=== PATIENT | male | born 1950 | race Caucasian/White ===

== ENCOUNTER 2022-12-07 13:49 | Observation (INO) | payer MEDICARE, OTHER ==
--- NOTE | 2022-12-07 14:22 | XRAY ---
Indication: Chest pain/tightness. Comparison: September 06, 2022 Portable chest again demonstrates left base subsegmental atelectasis/scarring. Remaining heart and lungs unremarkable. Bony thorax intact again with osteopenia, degenerative changes, old right clavicle fracture, and old right rib fractures. Impression: Continued nonacute chest with chronic features.
[2022-12-07 14:30] LABS: Absolute Neutrophil Ct (ANC) 9.12 x10^3/uL (1.4-6.9); BASOPHIL % 0.2 % (0.0-0.4); Basophil (Absolute #) 0.02 x10^3/uL (0-0.4); Eosinophil % 1.5 % (0.00-5.0); Eosinophil (Absolute #) 0.16 x10^3/uL (0-0.5); Hematocrit 36.5 % (42-50); Hemoglobin 12.6 g/dL (12.5-18.0); IMMATURE GRAN # 0.03 x10^3u/L (0.00-0.03); IMMATURE GRAN % 0.3 % (0.00-0.4); Lymphocyte (Absolute #) 0.31 x10^3/uL (1.0-4.6); Mean Cell Volume 86.9 fL (78-100); Mean Corpuscular Hgb Concent. 34.5 g/dL (32-36); Mean Platelet Volume 10.7 fL (7.5-11.0); Monocyte (Absolute #) 0.72 x10^3/uL (0.0-1.3); Monocytes % 6.9 % (0.0-12.0); Neutrophil % 88.1 % (36.0-66.0); Platelet Count 203 x10^3/uL (150-450); Red Cell Distribution Width 12.4 % (11.5-14.0); White Blood Count 10.4 x10^3/uL (4.0-10.5)
[2022-12-07] MEDS ORDERED: BABY ASPIRIN 81 MG CHEW PO ONE (14:34)
--- NOTE | 2022-12-07 14:40 | ERPHSYRPT ---
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 I had some chest discomfort and I am weak. I do not hurt now I just do not feel well." Triage Nursing Assessment: PT presented alert and oriented X 3, skin pwd. Pt able to speak in clear full sentences. pt resting comfortably on the bed. PT arrived with a 22 g iv in his right ac. pt able to move all extremities. Physician History: 72 yo WM w Mid-sternal chest pain while climbing on a dumpster. pain was descr ibed as "tightness" and has now resolved. Pain did not radiate and was accompanied by nausea/dyspnea/diaphoresis. Pain lasted 30 minutes and resolved w rest. He denies CAD/NH but does have a h/o HTN/Hyperlipidemia. Pt sees Dr. Martinez for his blood pressure. states that pt has had similar episodes in the past. Timing/Duration: today Activities at Onset: other (Climbing on a dumpster) Quality: tightness Location: substernal Chest Pain Radiation: no radiation Severity of Pain-Max: moderate Severity of Pain-Current: none Modifying Factors: Improves With: rest Associated Symptoms: nausea, shortness of breath, diaphoresis Nitro Today/Relief: no nitro taken today Aspirin Treatment Today: no aspirin today Allergies/Adverse Reactions: No Known Drug Allergies Allergy (Verified 04/30/13 11:05) Home Medications: ALPRAZolam 0.25 MG [xanAX 0.25 MG] 0.25 mg PO DAILY 12/07/22 [History] Amlodipine Besylate 5 mg [Norvasc 5 mg] 5 mg PO BID 12/07/22 [History] Aspirin EC 325 mg [Ecotrin 325 MG] 325 mg PO 3XW 12/07/22 [History] Benazepril HCl 40 mg PO DAILY 12/07/22 [History] Carvedilol [Coreg] 25 mg PO BID 12/07/22 [History] Famotidine 40 mg PO DAILY 12/07/22 [History] Folic Acid 20 mg PO DAILY 12/07/22 [History] Methotrexate Sodium [Methotrexate] 25 mg IJ WEEKLY 12/07/22 [History] Metoclopramide HCl 10 mg PO DAILY 12/07/22 [History] Omeprazole 80 mg PO BID 12/07/22 [History] Simvastatin 20Mg [Zocor 20Mg] 20 mg PO DAILY 12/07/22 [History] Hx Tetanus, Diphtheria Vaccination/Date Given: Yes (01/2013) Hx Influenza Vaccination/Date Given: No Hx Pneumococcal Vaccination/Date Given: No Immunizations Up to Date: Yes Travel Risk - International Travel Have you traveled outside of the country in past 3 weeks: No - Coronavirus Screening Are you exhibiting any of the following symptoms?: No Close contact with a COVID-19 positive Pt in past 14-21 Days: No - Vaccine Status Have you recieved a Covid-19 vaccination: Yes [employer]: Moderna - Vaccination Dates Date of 2cond Vaccination (if applicable): 2020 - Review of Systems Constitutional: No Symptoms Eyes: No Symptoms Ears, Nose, & Throat: No Symptoms Respiratory: No Symptoms, Dyspnea Cardiac: No Symptoms, Chest Pain Abdominal/Gastrointestinal: No Symptoms, Nausea Genitourinary Symptoms: No Symptoms Musculoskeletal: No Symptoms Skin: No Symptoms Neurological: No Symptoms Psychological: No Symptoms Endocrine: No Symptoms Hematologic/Lymphatic: No Symptoms Immunological/Allergic: No Symptoms - Past Medical History Pertinent Past Medical History: Yes Neurological History: No Pertinent History ENT History: No Pertinent History Cardiac History: Hypertension Respiratory History: No Pertinent History Endocrine Medical History: No Pertinent History Musculoskeletal History: Fractures GI Medical History: GERD History: No Pertinent History Psycho-Social History: Anxiety Male Reproductive Disorders: No Pertinent History Other Medical History: GERD - Past Surgical History Past Surgical History: Yes Neuro Surgical History: No Pertinent History Cardiac: No Pertinent History Respiratory: No Pertinent History Gastrointestinal: No Pertinent History Genitourinary: No Pertinent History Musculoskeletal: Orthopedic Surgery Male Surgical History: No Pertinent History Other Surgical History: fracture repair. legs arms collar bone hands - Social History Smoking Status: Former smoker Exposure to second hand smoke: No Alcohol Use: None Drug Use: none Patient Lives Alone: No Significant Family History: hypertension - Nursing Vital Signs Nursing Vital Signs: Initial Vital Signs Temperature 99.0 F 12/07/22 13:57 Pulse Rate 75 12/07/22 13:57 Respiratory Rate 22 12/07/22 13:57 Blood Pressure 144/70 12/07/22 13:57 O2 Sat by Pulse Oximetry 96 12/07/22 13:57 Pain Scale Pain Intensity 0 Hypertensive - Physical Exam General Appearance: no apparent distress Eye Exam: PERRL/EOMI, eyes nml inspection Ears, Nose, Throat Exam: normal ENT inspection, TMs normal, pharynx normal, moist mucous membranes Neck Exam: normal inspection, non-tender, supple, full range of motion, No meningismus, No mass, No Brudzinski, No Kernig's Respiratory Exam: normal breath sounds, lungs clear, airway intact Cardiovascular Exam: regular rate/rhythm, normal heart sounds, normal peripheral pulses, capillary refill <2 sec, No murmur Gastrointestinal/Abdomen Exam: soft, normal bowel sounds, No tenderness Back Exam: normal inspection, normal range of motion, No CVA tenderness, No vertebral tenderness Extremity Exam: normal inspection, normal range of motion Neurologic Exam: alert, oriented x 3, cooperative, operating room assistant II-XII nml as tested, normal mood/affect, nml cerebellar function, nml station & gait, sensation nml, No motor deficits, No sensory deficit Skin Exam: normal color, warm, dry Lymphatic Exam: No adenopathy SpO2 Interpretation: normal SpO2: 96 O2 Delivery: Room Air - Course Nursing assessment & vital signs reviewed: Yes EKG Interpreted by Me: RATE (Artifact/Poor tracing/Mildly tachy/prolonged Qtc/Flat T waves/EKG #2 NSR/Flat Twaves/No acute ST segment changes) - Radiology Exams Chest X-ray Interpretation: Reviewed by me, Discussed w/ radiologist (CXR neg per Rad) Ordered Tests: Active Orders 24 hr Category Date Time Status EKG-ER Only STAT Care 12/07/22 14:06 Completed EKG-ER Only STAT Care 12/07/22 16:28 Completed Heart-Healthy Diet Diet 12/08/22 Breakfast Active CHEST 1 VIEW (PORTABLE) Stat Exams 12/07/22 14:06 Completed ECHO W/2D AND DOPPLER [US] Routine Exams 12/08/22 10:00 Stop Req CBC W DIFF Stat Lab 12/07/22 14:25 Completed CMP Stat Lab 12/07/22 14:25 Completed LIPID PROFILE AM.LAB Lab 12/08/22 04:00 Ordered NT PRO BNPII Stat Lab 12/07/22 14:25 Completed PROTIME WITH INR Stat Lab 12/07/22 14:25 Completed PTT Stat Lab 12/07/22 14:25 Completed TROPONIN Q4H Lab 12/07/22 14:25 Completed TROPONIN Q4H Lab 12/07/22 16:30 Completed TROPONIN Q4H Lab 12/07/22 22:15 Ordered EKG Q8HX2,QAMX3,PRN RT 12/07/22 17:21 Completed Pulse Oximetry Q4H RT 12/07/22 17:21 Completed Transfer Order Routine Transfer 12/07/22 Completed Medication Summary Generic Name Dose Route Start Last Admin Trade Name Freq PRN Reason Stop Dose Admin Acetaminophen 650 mg 12/07/22 17:21 Acetaminophen 325 Mg Tablet PO 01/06/23 17:20 Q4H PRN PRN PAIN AND/OR FEVER Al Hydrox/Mg Hydrox/Simethicone 30 ml 12/07/22 17:21 Mag Hydrox/Al Hydrox/Simeth 30 Ml Udcup PO 01/06/23 17:20 Q4H PRN PRN INDIGESTION Alprazolam 0.25 mg 12/07/22 21:54 Alprazolam 0.25 Mg Tablet PO 01/06/23 21:53 DAILY PRN PRN ANXIETY Amlodipine Besylate 5 mg 12/07/22 22:00 Amlodipine Besylate 5 Mg Tablet PO 01/06/23 21:59 BID NAVDEEP Aspirin 325 mg 12/08/22 10:00 Aspirin 325 Mg Tablet.Ec PO 01/07/23 09:59 DAILY NAVDEEP Benazepril HCl 40 mg 12/08/22 10:00 Benazepril Hcl 10 Mg Tablet PO 01/07/23 09:59 QAM NAVDEEP Carvedilol 25 mg 12/07/22 22:00 Carvedilol 12.5 Mg Tablet PO 01/06/23 21:59 BID NAVDEEP Diphenhydramine HCl 50 mg 12/07/22 21:54 Diphenhydramine Hcl 25 Mg Capsule PO 01/06/23 21:53 HS PRN PRN INSOMNIA Enoxaparin Sodium 40 mg 12/08/22 10:00 Enoxaparin Sodium 40 Mg/0.4 Ml Syringe SQ 01/07/23 09:59 DAILY NAVDEEP Sodium Chloride 500 mls @ 20 mls/hr 12/07/22 17:30 Sodium Chloride 0.9% 500 Ml IV 01/06/23 17:29 .Q24H NAVDEEP Magnesium Hydroxide 30 - 60 ml 12/07/22 17:21 Magnesium Hydroxide 30 Ml Udcup PO 01/06/23 17:20 QDP PRN CONSTIPATION Morphine Sulfate 2 mg 12/07/22 17:21 Morphine Sulfate 2 Mg/Ml Inj IV 12/12/22 17:20 .Q15MIN PRN PRN CHEST PAIN Nitroglycerin 0.4 mg 12/07/22 17:21 Nitroglycerin 0.4 Mg Tablet Bottle SL 01/06/23 17:20 .Q5MIN PRN CHEST PAIN Ondansetron HCl 4 mg 12/07/22 17:21 Ondansetron Hcl 4 Mg/2 Ml Vial IV 01/06/23 17:20 Q4H PRN PRN NAUSEA/VOMITING Senna/Docusate Sodium 2 udtab 12/07/22 17:21 Senna/Docusate Sodium 1 Udtab Tablet PO 01/06/23 17:20 BID PRN PRN CONSTIPATION Simvastatin 40 mg 12/07/22 22:00 Simvastatin 20 Mg Tablet PO 01/06/23 21:59 BID NAVDEEP Discontinued Medications Generic Name Dose Route Start Last Admin Trade Name Freq PRN Reason Stop Dose Admin Aspirin 324 mg 12/07/22 14:34 12/07/22 14:57 Aspirin 81 Mg Tab.Chew PO 12/07/22 14:35 324 mg STAT ONE Administration Aspirin Confirm 12/07/22 14:57 Aspirin 81 Mg Tab.Chew Administered 12/07/22 14:58 Dose 324 mg .ROUTE .[facility] Lab/Rad Data: Laboratory Result Diagrams 12/07/22 14:25 12/07/22 14:25 Laboratory Results 12/07/22 12/07/22 12/07/22 Range/Units 17:30 16:30 14:25 WBC (4.0-10.5) x10^3/uL RBC (4.1-5.6) x10^6/uL Hgb (12.5-18.0) g/dL Hct (42-50) % MCV (78-100) fL MCH (26-32) pg MCHC (32-36) g/dL RDW (11.5-14.0) % Plt Count (150-450) x10^3/uL MPV (7.5-11.0) fL Gran % (36.0-66.0) % Immature Gran % (Auto) (0.00-0.4) % Nucleat RBC Rel Count (0.00-0.1) % Eos # (Auto) (0-0.5) x10^3/uL Immature Gran # (Auto) (0.00-0.03) x10^3u/L Absolute Lymphs (auto) (1.0-4.6) x10^3/uL Absolute Monos (auto) (0.0-1.3) x10^3/uL Absolute Nucleated RBC (0.00-0.01) x10^3u/L Lymphocytes % (24.0-44.0) % Monocytes % (0.0-12.0) % Eosinophils % (0.00-5.0) % Basophils % (0.0-0.4) % Absolute Granulocytes (1.4-6.9) x10^3/uL Basophils # (0-0.4) x10^3/uL PT (9.4-12.5) SECONDS INR (0.8-3.0) APTT (25.1-36.5) SECONDS Sodium (137-145) mmol/L Potassium (3.5-5.1) mmol/L Chloride (98-107) mmol/L Carbon Dioxide (22-30) mmol/L Anion Gap (5-15) MEQ/L BUN (9-20) mg/dL Creatinine (0.66-1.25) mg/dL Estimated GFR ML/MIN Glucose (74-106) mg/dL Calcium (8.4-10.2) mg/dL Total Bilirubin (0.2-1.3) mg/dL AST (17-59) U/L ALT (0-50) U/L Alkaline Phosphatase (38-126) U/L Troponin I < 0.012 < 0.012 (0.000-0.034) ng/mL NT-Pro-B Natriuret Pep (<300) pg/mL Serum Total Protein (6.3-8.2) g/dL Albumin (3.5-5.0) g/dL Influenza Type A Ag NEGATIVE (NEGATIVE) Influenza Type B Ag NEGATIVE (NEGATIVE) RSV (PCR) NEGATIVE (NEGATIVE) SARS-CoV-2 (PCR) NEGATIVE (NEGATIVE) Slides for Path Review 12/07/22 12/07/22 12/07/22 Range/Units 14:25 14:25 14:25 WBC 10.4 (4.0-10.5) x10^3/uL RBC 4.20 (4.1-5.6) x10^6/uL Hgb 12.6 (12.5-18.0) g/dL Hct 36.5 L (42-50) % MCV 86.9 (78-100) fL MCH 30.0 (26-32) pg MCHC 34.5 (32-36) g/dL RDW 12.4 (11.5-14.0) % Plt Count 203 (150-450) x10^3/uL MPV 10.7 (7.5-11.0) fL Gran % 88.1 H (36.0-66.0) % Immature Gran % (Auto) 0.3 (0.00-0.4) % Nucleat RBC Rel Count 0.0 (0.00-0.1) % Eos # (Auto) 0.16 (0-0.5) x10^3/uL Immature Gran # (Auto) 0.03 (0.00-0.03) x10^3u/L Absolute Lymphs (auto) 0.31 L (1.0-4.6) x10^3/uL Absolute Monos (auto) 0.72 (0.0-1.3) x10^3/uL Absolute Nucleated RBC 0.00 (0.00-0.01) x10^3u/L Lymphocytes % 3.0 L (24.0-44.0) % Monocytes % 6.9 (0.0-12.0) % Eosinophils % 1.5 (0.00-5.0) % Basophils % 0.2 (0.0-0.4) % Absolute Granulocytes 9.12 H (1.4-6.9) x10^3/uL Basophils # 0.02 (0-0.4) x10^3/uL PT 10.3 (9.4-12.5) SECONDS INR 0.94 (0.8-3.0) APTT 27.9 (25.1-36.5) SECONDS Sodium 123 L (137-145) mmol/L Potassium 4.5 (3.5-5.1) mmol/L Chloride 89 L (98-107) mmol/L Carbon Dioxide 22 (22-30) mmol/L Anion Gap 17.1 H (5-15) MEQ/L BUN 10 (9-20) mg/dL Creatinine 0.90 (0.66-1.25) mg/dL Estimated GFR > 60.0 ML/MIN Glucose 98 (74-106) mg/dL Calcium 8.7 (8.4-10.2) mg/dL Total Bilirubin 0.70 (0.2-1.3) mg/dL AST 39 (17-59) U/L ALT 28 (0-50) U/L Alkaline Phosphatase 73 (38-126) U/L Troponin I (0.000-0.034) ng/mL NT-Pro-B Natriuret Pep 219 (<300) pg/mL Serum Total Protein 7.6 (6.3-8.2) g/dL Albumin 4.5 (3.5-5.0) g/dL Influenza Type A Ag (NEGATIVE) Influenza Type B Ag (NEGATIVE) RSV (PCR) (NEGATIVE) SARS-CoV-2 (PCR) (NEGATIVE) Slides for Path Review YES - Progress Progress: improved Progress Note: 12/07/22 17:26 Nursing note and vital signs reviewed No food or housing insecurities noted Additional history per EMS/ 324 ASA po No chest pain in ER Obs tele admit per Dr. MendezS Pt is a full code Heart score 5 Wells score for PE Wells Score 0.[address] Haris Counseled pt/family regarding: lab results, diagnosis, rad results Medical Desision Making - Independent Historian Additional History obtained from: Spouse, EMS - Discussion of managment Care discussed with:: on-call "doc" Reviewed:: Test results Agreed on:: Treatment plan, place in obs Will see patient: in hospital - Diagnostic Testing Diagnostic test were ordered, analyzed, and reviewed by me: Yes Radiological Interpretation: Reviewed by me, Discussed w/ radiologist - Risk of complications The pt has a mod risk of morbidity or mortality based on: Need for prescription drug management - Departure Departure Disposition: Observation Clinical Impression: Chest pain, Hyponatremia Condition: Stable Critical Care Time: Yes Critical Care Time(excluding separately billable procedures): Critical 30-74 mins
[2022-12-07 14:45] LABS: INR 0.94 (0.8-3.0); PROTIME 10.3 SECONDS (9.4-12.5); PTT 27.9 SECONDS (25.1-36.5)
[2022-12-07 14:54] LABS: ALBUMIN 4.5 g/dL (3.5-5.0); ALKALINE PHOSPHATASE 73 U/L (38-126); ANION GAP 17.1 MEQ/L (5-15); BLOOD UREA NITROGEN 10 mg/dL (9-20); CHLORIDE 89 mmol/L (98-107); Calcium 8.7 mg/dL (8.4-10.2); Carbon Dioxide 22 mmol/L (22-30); EST GLOMERULAR FILTRATION RATE > 60.0 ML/MIN; Glucose 98 mg/dL (74-106); NT PRO BNPII 219 pg/mL (<300); Potassium 4.5 mmol/L (3.5-5.1); SGOT/AST 39 U/L (17-59); SGPT/ALT 28 U/L (0-50); SODIUM 123 mmol/L (137-145); Total Protein 7.6 g/dL (6.3-8.2)
[2022-12-07] MEDS ORDERED: BABY ASPIRIN 81 MG CHEW ONE (14:57)
[2022-12-07 15:28] LABS: Slide Review 1 YES
[2022-12-07] MEDS ORDERED: MAALOX ES 30 ML UNIT DOSE PO PRN (17:21)
[2022-12-07] MEDS ORDERED: MILK OF MAGNESIA 30 ML PO PRN (17:21)
[2022-12-07] MEDS ORDERED: TYLENOL 325 MG PO PRN (17:21)
[2022-12-07] MEDS ORDERED: MORPHINE SULFATE 2 MG INJ IV PRN (17:21)
[2022-12-07] MEDS ORDERED: Senokot-S Tablet PO PRN (17:21)
[2022-12-07] MEDS ORDERED: Nitrostat 0.4 MG Tablet SL PRN (17:21)
[2022-12-07] MEDS ORDERED: Zofran 4 MG/2 ML VIAL IV PRN (17:21)
[2022-12-07] MEDS ORDERED: Sodium Chloride 0.9% 500 ML 500 ML IV SCH (17:30)
[2022-12-07 18:11] LABS: INFLUENZA A NEGATIVE (NEGATIVE); INFLUENZA B NEGATIVE (NEGATIVE); RESPIRATORY SYNCTIAL VIRUS NEGATIVE (NEGATIVE); SARS-CoV-2 Xpert Express NEGATIVE (NEGATIVE)
[2022-12-07] MEDS ORDERED: BENADRYL 25 MG CAPSULE PO PRN (21:54)
[2022-12-07] MEDS ORDERED: xanAX 0.25 MG PO PRN (21:54)
--- NOTE | 2022-12-07 22:32 | PCM.HP ---
History of Present Illness - Chief Complaint Chief Complaint: Chest pain History of Present Illness: is a 72 year old male with h/o HTN, GERD, and psoriasis, who presents with sudden onset of chest pain. He was recently started on Skyrizi for psoriasis, and has noted increased malaise and fatigue the past few days. But today, while climbing on truck, had sudden onset of burning substernal chest pain, without radiation, associated with diaphoresis, but no dyspnea, nausea, or numbness. Rested back in his truck, but pain lasted for about one hour, resolving prior to arriving in ED. No chest pain since then. Had a similar episode about 9 years ago, was told had episode of angina, but has not had any further need for follow up. Remote smoking history (quit 50 years ago), no family history of CAD. - Review of Systems Constitutional: Fatigue, Malaise, No Fever, No Chills Eyes: No Symptoms Ears, Nose, & Throat: No Symptoms Respiratory: No Cough, No Short Of Breath Cardiac: Chest Pain, No Edema, No Palpitations, No Syncope Abdominal/Gastrointestinal: No Abdominal Pain, No Nausea Genitourinary Symptoms: No Symptoms Musculoskeletal: No Symptoms Skin: Rash Neurological: No Dizziness, No Focal Weakness, No Sensory Changes Psychological: No Symptoms Medications & Allergies Home Medications: Home Medication List ALPRAZolam 0.25 MG [xanAX 0.25 MG] 0.25 mg PO DAILY 12/07/22 [History Confirmed 12/07/22] Amlodipine Besylate 5 mg [Norvasc 5 mg] 5 mg PO BID 12/07/22 [History Confirmed 12/07/22] Aspirin EC 325 mg [Ecotrin 325 MG] 325 mg PO 3XW 12/07/22 [History Confirmed 12/07/22] Benazepril HCl 40 mg PO DAILY 12/07/22 [History Confirmed 12/07/22] Carvedilol [Coreg] 25 mg PO BID 12/07/22 [History Confirmed 12/07/22] Famotidine 40 mg PO DAILY 12/07/22 [History Confirmed 12/07/22] Folic Acid 20 mg PO DAILY 12/07/22 [History Confirmed 12/07/22] Methotrexate Sodium [Methotrexate] 25 mg IJ WEEKLY 12/07/22 [History Confirmed 12/07/22] Metoclopramide HCl 10 mg PO DAILY 12/07/22 [History Confirmed 12/07/22] Omeprazole 80 mg PO BID 12/07/22 [History Confirmed 12/07/22] Simvastatin 20Mg [Zocor 20Mg] 20 mg PO DAILY 12/07/22 [History Confirmed 12/07/22] Allergies/Adverse Reactions: Allergies Allergy/AdvReac Type Severity Reaction Status Date / Time No Known Drug Allergies Allergy Verified 04/30/13 11:05 - Past Medical History Past Medical History: Yes Neurological History: No Pertinent History ENT History: No Pertinent History Cardiac History: Hypertension Respiratory History: No Pertinent History Endocrine Medical History: No Pertinent History Musculoskelatal History: Fractures GI Medical History: GERD History: No Pertinent History Pyscho-Social History: Anxiety Male Reproductive Disorders: No Pertinent History Comment: GERD - Past Surgical History Past Surgical History: Yes Neuro Surgical History: No Pertinent History Cardiac History: No Pertinent History Respiratory Surgery: No Pertinent History GI Surgical History: No Pertinent History Genitourinary Surgical Hx: No Pertinent History Musculskeletal Surgical Hx: Orthopedic Surgery Male Surgical History: No Pertinent History Other Surgical History: fracture repair. legs arms collar bone hands - Social History Smoking Status: Former smoker Exposure to second hand smoke: No Alcohol: Daily Drug Use: none Significant Family History: hypertension Family History: Mother with TIAs in her 80s. - Physical Exam Vital Signs: Vital Signs - 24 hr Temp Pulse Resp BP Pulse Ox 12/07/22 22:15 96 12/07/22 20:13 97.1 F 69 20 103/60 12/07/22 19:00 71 90/58 96 12/07/22 17:36 81 13 123/78 95 12/07/22 16:44 80 15 125/88 95 12/07/22 15:48 83 20 128/85 95 12/07/22 14:54 80 16 118/83 94 L 12/07/22 13:57 99.0 F 75 22 144/70 96 General Appearance: no apparent distress Neurologic Exam: alert, oriented x 3 Respiratory Exam: normal breath sounds, lungs clear, No respiratory distress, No accessory muscle use Cardiovascular Exam: regular rate/rhythm, No murmur, No edema Gastrointestinal/Abdomen Exam: normal bowel sounds Results - Labs Lab/Micro Results: Lab Results-Last 24 Hours 12/07/22 12/07/22 12/07/22 Range/Units 14:25 14:25 14:25 WBC 10.4 (4.0-10.5) x10^3/uL RBC 4.20 (4.1-5.6) x10^6/uL Hgb 12.6 (12.5-18.0) g/dL Hct 36.5 L (42-50) % MCV 86.9 (78-100) fL MCH 30.0 (26-32) pg MCHC 34.5 (32-36) g/dL RDW 12.4 (11.5-14.0) % Plt Count 203 (150-450) x10^3/uL MPV 10.7 (7.5-11.0) fL Gran % 88.1 H (36.0-66.0) % Immature Gran % (Auto) 0.3 (0.00-0.4) % Nucleat RBC Rel Count 0.0 (0.00-0.1) % Eos # (Auto) 0.16 (0-0.5) x10^3/uL Immature Gran # (Auto) 0.03 (0.00-0.03) x10^3u/L Absolute Lymphs (auto) 0.31 L (1.0-4.6) x10^3/uL Absolute Monos (auto) 0.72 (0.0-1.3) x10^3/uL Absolute Nucleated RBC 0.00 (0.00-0.01) x10^3u/L Lymphocytes % 3.0 L (24.0-44.0) % Monocytes % 6.9 (0.0-12.0) % Eosinophils % 1.5 (0.00-5.0) % Basophils % 0.2 (0.0-0.4) % Absolute Granulocytes 9.12 H (1.4-6.9) x10^3/uL Basophils # 0.02 (0-0.4) x10^3/uL PT 10.3 (9.4-12.5) SECONDS INR 0.94 (0.8-3.0) APTT 27.9 (25.1-36.5) SECONDS Sodium 123 L (137-145) mmol/L Potassium 4.5 (3.5-5.1) mmol/L Chloride 89 L (98-107) mmol/L Carbon Dioxide 22 (22-30) mmol/L Anion Gap 17.1 H (5-15) MEQ/L BUN 10 (9-20) mg/dL Creatinine 0.90 (0.66-1.25) mg/dL Estimated GFR > 60.0 ML/MIN Glucose 98 (74-106) mg/dL Calcium 8.7 (8.4-10.2) mg/dL Total Bilirubin 0.70 (0.2-1.3) mg/dL AST 39 (17-59) U/L ALT 28 (0-50) U/L Alkaline Phosphatase 73 (38-126) U/L Troponin I (0.000-0.034) ng/mL NT-Pro-B Natriuret Pep 219 (<300) pg/mL Serum Total Protein 7.6 (6.3-8.2) g/dL Albumin 4.5 (3.5-5.0) g/dL Influenza Type A Ag (NEGATIVE) Influenza Type B Ag (NEGATIVE) RSV (PCR) (NEGATIVE) SARS-CoV-2 (PCR) (NEGATIVE) Slides for Path Review YES 12/07/22 12/07/22 12/07/22 Range/Units 14:25 16:30 17:30 WBC (4.0-10.5) x10^3/uL RBC (4.1-5.6) x10^6/uL Hgb (12.5-18.0) g/dL Hct (42-50) % MCV (78-100) fL MCH (26-32) pg MCHC (32-36) g/dL RDW (11.5-14.0) % Plt Count (150-450) x10^3/uL MPV (7.5-11.0) fL Gran % (36.0-66.0) % Immature Gran % (Auto) (0.00-0.4) % Nucleat RBC Rel Count (0.00-0.1) % Eos # (Auto) (0-0.5) x10^3/uL Immature Gran # (Auto) (0.00-0.03) x10^3u/L Absolute Lymphs (auto) (1.0-4.6) x10^3/uL Absolute Monos (auto) (0.0-1.3) x10^3/uL Absolute Nucleated RBC (0.00-0.01) x10^3u/L Lymphocytes % (24.0-44.0) % Monocytes % (0.0-12.0) % Eosinophils % (0.00-5.0) % Basophils % (0.0-0.4) % Absolute Granulocytes (1.4-6.9) x10^3/uL Basophils # (0-0.4) x10^3/uL PT (9.4-12.5) SECONDS INR (0.8-3.0) APTT (25.1-36.5) SECONDS Sodium (137-145) mmol/L Potassium (3.5-5.1) mmol/L Chloride (98-107) mmol/L Carbon Dioxide (22-30) mmol/L Anion Gap (5-15) MEQ/L BUN (9-20) mg/dL Creatinine (0.66-1.25) mg/dL Estimated GFR ML/MIN Glucose (74-106) mg/dL Calcium (8.4-10.2) mg/dL Total Bilirubin (0.2-1.3) mg/dL AST (17-59) U/L ALT (0-50) U/L Alkaline Phosphatase (38-126) U/L Troponin I < 0.012 < 0.012 (0.000-0.034) ng/mL NT-Pro-B Natriuret Pep (<300) pg/mL Serum Total Protein (6.3-8.2) g/dL Albumin (3.5-5.0) g/dL Influenza Type A Ag NEGATIVE (NEGATIVE) Influenza Type B Ag NEGATIVE (NEGATIVE) RSV (PCR) NEGATIVE (NEGATIVE) SARS-CoV-2 (PCR) NEGATIVE (NEGATIVE) Slides for Path Review - Radiology Impressions Radiology Exams & Impressions: Radiology Procedures Category Date Time Status CHEST 1 VIEW (PORTABLE) Stat Exams 12/07/22 14:06 Completed ECHO W/2D AND DOPPLER [US] Routine Exams 12/08/22 10:00 Stop Req - Other Procedures and Tests Respiratory Therapy 12/08/22 00:40 EKG ROUTINE 12/09/22 05:00 EKG ROUTINE 12/10/22 05:00 EKG ROUTINE Assessment/Plan (1) Chest pain Current Visit: Yes Status: Acute Assessment & Plan: Negative initial troponin and EKG. Main risk factors are age and h/o HTN. But fairly active at baseline. - trend troponins - trend EKG - would benefit from stress testing - monitor on telemetry Code(s): R07.9 - CHEST PAIN, UNSPECIFIED (2) Hypertension Current Visit: Yes Status: Chronic Assessment & Plan: - cont home benazepril, amlodipine Code(s): I10 - ESSENTIAL (PRIMARY) HYPERTENSION (3) GERD (gastroesophageal reflux disease) Current Visit: Yes Status: Acute Assessment & Plan: - continue home PPI BID Code(s): K21.9 - GASTRO-ESOPHAGEAL REFLUX DISEASE WITHOUT ESOPHAGITIS Telemedicine Encounter - Telemedicine Encounter Telemedicine Encounter: The entirety of this encounter was performed via Telemedicine"
[2022-12-07] MEDS: ZOCOR 20MG PO SCH (22:41)
[2022-12-07] MEDS: COREG 12.5 MG PO SCH (22:41)
[2022-12-07] MEDS: NORVASC 5 MG PO SCH (22:42)
[2022-12-08 05:21] LABS: Hemoglobin 11.9 g/dL (12.5-18.0); Mean Cell Volume 85.4 fL (78-100); Mean Corpuscular Hemoglobin 29.9 pg (26-32); Mean Platelet Volume 10.8 fL (7.5-11.0); Platelet Count 182 x10^3/uL (150-450); Red Blood Count 3.98 x10^6/uL (4.1-5.6); Red Cell Distribution Width 12.7 % (11.5-14.0); White Blood Count 4.6 x10^3/uL (4.0-10.5)
[2022-12-08 06:17] LABS: ANION GAP 14.4 MEQ/L (5-15); BLOOD UREA NITROGEN 9 mg/dL (9-20); CHLORIDE 94 mmol/L (98-107); Calcium 8.5 mg/dL (8.4-10.2); Carbon Dioxide 23 mmol/L (22-30); Cholesterol 148 mg/dL (50-200); Creatinine 1 0.74 mg/dL (0.66-1.25); EST GLOMERULAR FILTRATION RATE > 60.0 ML/MIN; Glucose 95 mg/dL (74-106); HDL CHOLESTEROL 56 mg/dL (40-60); LDL, DIRECT 60 mg/dL (30-100); Potassium 3.9 mmol/L (3.5-5.1); Risk Ratio 2.7; SODIUM 128 mmol/L (137-145); TRIGLYCERIDE 108 mg/dL (30-150)
[2022-12-08] MEDS ORDERED: Ecotrin 325 MG PO SCH (10:00)
[2022-12-08] MEDS: Lotensin PO SCH (10:47)
[2022-12-08] MEDS: COREG 12.5 MG PO SCH ×2 (10:48→21:21)
[2022-12-08] MEDS: NORVASC 5 MG PO SCH ×2 (10:48→21:21)
[2022-12-08] MEDS: ENOXAPARIN SODIUM SQ SCH (10:49)
[2022-12-08] MEDS: ZOCOR 20MG PO SCH (10:51)
--- NOTE | 2022-12-08 12:48 | PCM.NOTE ---
Date and Time: 12/08/22 1243 Subjective Assessment: Pt says he was reported to have some syncope at the job site. His first EKG in ER showed afib. He is feeling fine today. Says he only eats 1x/day at home and drinks lots of water. Has 2-3 glasses of wine every night. - Review of Systems Constitutional: No Fever Abdominal/Gastrointestinal: No Vomiting Objective Exam General Appearance: no apparent distress, alert Neurologic Exam: oriented x 3, cooperative Skin Exam: normal color, warm, dry, No rash Eye Exam: eyes nml inspection Ears, Nose, Throat Exam: moist mucous membranes Respiratory Exam: normal breath sounds, lungs clear, No crackles/rales, No rhonchi, No wheezing Cardiovascular Exam: regular rate/rhythm, normal heart sounds, No murmur Gastrointestinal/Abdomen Exam: soft, normal bowel sounds, No tenderness, No distention, No mass, No guarding, No rebound Extremity Exam: normal inspection, No pedal edema, No swelling Back Exam: normal inspection, No rash OBJECTIVE DATA Vital Signs: Vital Signs - 24 hr Temp Pulse Resp BP Pulse Ox 12/08/22 12:00 17 12/08/22 11:58 97.5 F 65 17 107/66 96 12/08/22 08:00 96.8 F 66 17 119/76 94 L 12/08/22 04:00 97.6 F 74 20 110/66 95 12/08/22 00:00 20 12/07/22 23:47 97.8 F 65 20 121/68 96 12/07/22 22:15 96 12/07/22 20:13 97.1 F 69 20 103/60 12/07/22 19:00 71 90/58 96 12/07/22 17:36 81 13 123/78 95 12/07/22 16:44 80 15 125/88 95 12/07/22 15:48 83 20 128/85 95 12/07/22 14:54 80 16 118/83 94 L 12/07/22 13:57 99.0 F 75 22 144/70 96 Pain Assessment - Last Documented Pain Intensity 0 Intake and Output: Intake & Output 12/06/22 12/07/22 12/08/22 12/09/22 11:59 11:59 11:59 11:59 Intake Total 840 Output Total 1600 Balance -760 Weight 78.5 kg Lab Results: Lab Results-Last 24 Hours 12/07/22 12/07/22 12/07/22 Range/Units 14:25 14:25 14:25 WBC 10.4 (4.0-10.5) x10^3/uL RBC 4.20 (4.1-5.6) x10^6/uL Hgb 12.6 (12.5-18.0) g/dL Hct 36.5 L (42-50) % MCV 86.9 (78-100) fL MCH 30.0 (26-32) pg MCHC 34.5 (32-36) g/dL RDW 12.4 (11.5-14.0) % Plt Count 203 (150-450) x10^3/uL MPV 10.7 (7.5-11.0) fL Gran % 88.1 H (36.0-66.0) % Immature Gran % (Auto) 0.3 (0.00-0.4) % Nucleat RBC Rel Count 0.0 (0.00-0.1) % Eos # (Auto) 0.16 (0-0.5) x10^3/uL Immature Gran # (Auto) 0.03 (0.00-0.03) x10^3u/L Absolute Lymphs (auto) 0.31 L (1.0-4.6) x10^3/uL Absolute Monos (auto) 0.72 (0.0-1.3) x10^3/uL Absolute Nucleated RBC 0.00 (0.00-0.01) x10^3u/L Lymphocytes % 3.0 L (24.0-44.0) % Monocytes % 6.9 (0.0-12.0) % Eosinophils % 1.5 (0.00-5.0) % Basophils % 0.2 (0.0-0.4) % Absolute Granulocytes 9.12 H (1.4-6.9) x10^3/uL Basophils # 0.02 (0-0.4) x10^3/uL PT 10.3 (9.4-12.5) SECONDS INR 0.94 (0.8-3.0) APTT 27.9 (25.1-36.5) SECONDS Sodium 123 L (137-145) mmol/L Potassium 4.5 (3.5-5.1) mmol/L Chloride 89 L (98-107) mmol/L Carbon Dioxide 22 (22-30) mmol/L Anion Gap 17.1 H (5-15) MEQ/L BUN 10 (9-20) mg/dL Creatinine 0.90 (0.66-1.25) mg/dL Estimated GFR > 60.0 ML/MIN Glucose 98 (74-106) mg/dL Calcium 8.7 (8.4-10.2) mg/dL Total Bilirubin 0.70 (0.2-1.3) mg/dL AST 39 (17-59) U/L ALT 28 (0-50) U/L Alkaline Phosphatase 73 (38-126) U/L Troponin I (0.000-0.034) ng/mL NT-Pro-B Natriuret Pep 219 (<300) pg/mL Serum Total Protein 7.6 (6.3-8.2) g/dL Albumin 4.5 (3.5-5.0) g/dL Triglycerides (30-150) mg/dL Cholesterol (50-200) mg/dL LDL Cholesterol (30-100) mg/dL HDL Cholesterol (40-60) mg/dL Heart Disease Risk Ratio Influenza Type A Ag (NEGATIVE) Influenza Type B Ag (NEGATIVE) RSV (PCR) (NEGATIVE) SARS-CoV-2 (PCR) (NEGATIVE) Slides for Path Review YES 12/07/22 12/07/22 12/07/22 Range/Units 14:25 16:30 17:30 WBC (4.0-10.5) x10^3/uL RBC (4.1-5.6) x10^6/uL Hgb (12.5-18.0) g/dL Hct (42-50) % MCV (78-100) fL MCH (26-32) pg MCHC (32-36) g/dL RDW (11.5-14.0) % Plt Count (150-450) x10^3/uL MPV (7.5-11.0) fL Gran % (36.0-66.0) % Immature Gran % (Auto) (0.00-0.4) % Nucleat RBC Rel Count (0.00-0.1) % Eos # (Auto) (0-0.5) x10^3/uL Immature Gran # (Auto) (0.00-0.03) x10^3u/L Absolute Lymphs (auto) (1.0-4.6) x10^3/uL Absolute Monos (auto) (0.0-1.3) x10^3/uL Absolute Nucleated RBC (0.00-0.01) x10^3u/L Lymphocytes % (24.0-44.0) % Monocytes % (0.0-12.0) % Eosinophils % (0.00-5.0) % Basophils % (0.0-0.4) % Absolute Granulocytes (1.4-6.9) x10^3/uL Basophils # (0-0.4) x10^3/uL PT (9.4-12.5) SECONDS INR (0.8-3.0) APTT (25.1-36.5) SECONDS Sodium (137-145) mmol/L Potassium (3.5-5.1) mmol/L Chloride (98-107) mmol/L Carbon Dioxide (22-30) mmol/L Anion Gap (5-15) MEQ/L BUN (9-20) mg/dL Creatinine (0.66-1.25) mg/dL Estimated GFR ML/MIN Glucose (74-106) mg/dL Calcium (8.4-10.2) mg/dL Total Bilirubin (0.2-1.3) mg/dL AST (17-59) U/L ALT (0-50) U/L Alkaline Phosphatase (38-126) U/L Troponin I < 0.012 < 0.012 (0.000-0.034) ng/mL NT-Pro-B Natriuret Pep (<300) pg/mL Serum Total Protein (6.3-8.2) g/dL Albumin (3.5-5.0) g/dL Triglycerides (30-150) mg/dL Cholesterol (50-200) mg/dL LDL Cholesterol (30-100) mg/dL HDL Cholesterol (40-60) mg/dL Heart Disease Risk Ratio Influenza Type A Ag NEGATIVE (NEGATIVE) Influenza Type B Ag NEGATIVE (NEGATIVE) RSV (PCR) NEGATIVE (NEGATIVE) SARS-CoV-2 (PCR) NEGATIVE (NEGATIVE) Slides for Path Review 0412/08/22 12/08/22 Range/Units 22:41 05:04 05:04 WBC 4.6 (4.0-10.5) x10^3/uL RBC 3.98 L (4.1-5.6) x10^6/uL Hgb 11.9 L (12.5-18.0) g/dL Hct 34.0 L (42-50) % MCV 85.4 (78-100) fL MCH 29.9 (26-32) pg MCHC 35.0 (32-36) g/dL RDW 12.7 (11.5-14.0) % Plt Count 182 (150-450) x10^3/uL MPV 10.8 (7.5-11.0) fL Gran % (36.0-66.0) % Immature Gran % (Auto) (0.00-0.4) % Nucleat RBC Rel Count (0.00-0.1) % Eos # (Auto) (0-0.5) x10^3/uL Immature Gran # (Auto) (0.00-0.03) x10^3u/L Absolute Lymphs (auto) (1.0-4.6) x10^3/uL Absolute Monos (auto) (0.0-1.3) x10^3/uL Absolute Nucleated RBC (0.00-0.01) x10^3u/L Lymphocytes % (24.0-44.0) % Monocytes % (0.0-12.0) % Eosinophils % (0.00-5.0) % Basophils % (0.0-0.4) % Absolute Granulocytes (1.4-6.9) x10^3/uL Basophils # (0-0.4) x10^3/uL PT (9.4-12.5) SECONDS INR (0.8-3.0) APTT (25.1-36.5) SECONDS Sodium 128 L (137-145) mmol/L Potassium 3.9 (3.5-5.1) mmol/L Chloride 94 L (98-107) mmol/L Carbon Dioxide 23 (22-30) mmol/L Anion Gap 14.4 (5-15) MEQ/L BUN 9 (9-20) mg/dL Creatinine 0.74 (0.66-1.25) mg/dL Estimated GFR > 60.0 ML/MIN Glucose 95 (74-106) mg/dL Calcium 8.5 (8.4-10.2) mg/dL Total Bilirubin (0.2-1.3) mg/dL AST (17-59) U/L ALT (0-50) U/L Alkaline Phosphatase (38-126) U/L Troponin I < 0.012 (0.000-0.034) ng/mL NT-Pro-B Natriuret Pep (<300) pg/mL Serum Total Protein (6.3-8.2) g/dL Albumin (3.5-5.0) g/dL Triglycerides 108 (30-150) mg/dL Cholesterol 148 (50-200) mg/dL LDL Cholesterol 60 (30-100) mg/dL HDL Cholesterol 56 (40-60) mg/dL Heart Disease Risk Ratio 2.7 Influenza Type A Ag (NEGATIVE) Influenza Type B Ag (NEGATIVE) RSV (PCR) (NEGATIVE) SARS-CoV-2 (PCR) (NEGATIVE) Slides for Path Review Radiology Exams: Radiology Procedures Category Date Time Status CAROTID BILATERAL [US] Routine Exams 12/08/22 12:03 Ordered CHEST 1 VIEW (PORTABLE) Stat Exams 12/07/22 14:06 Completed ECHO W/2D AND DOPPLER [US] Routine Exams 12/08/22 10:00 Taken Assessment/Plan (1) Chest pain Current Visit: Yes Status: Acute Qualifiers: Chest pain type: unspecified Qualified Code(s): R07.9 - Chest pain, unspecified Assessment & Plan: NM ruled out with serial troponins. Code(s): R07.9 - CHEST PAIN, UNSPECIFIED (2) Atrial fibrillation Current Visit: Yes Status: Acute Qualifiers: Atrial fibrillation type: paroxysmal Qualified Code(s): I48.0 - Paroxysmal atrial fibrillation Assessment & Plan: I have consulted cardiology. Pt is on lovenox 40mg SC daily. Code(s): I48.91 - UNSPECIFIED ATRIAL FIBRILLATION (3) Syncope Current Visit: Yes Status: Acute Qualifiers: Syncope type: unspecified Qualified Code(s): R55 - Syncope and collapse Assessment & Plan: Will start work up including echo and carotid doppler. TSH. Code(s): R55 - SYNCOPE AND COLLAPSE (4) Hyponatremia Current Visit: Yes Status: Chronic Assessment & Plan: 128 is actually his highest sodium since Aug 2021. Code(s): E87.1 - HYPO-OSMOLALITY AND HYPONATREMIA (5) GERD (gastroesophageal reflux disease) Current Visit: Yes Status: Chronic Qualifiers: Esophagitis presence: without esophagitis Qualified Code(s): K21.9 - Gastro-esophageal reflux disease without esophagitis Code(s): K21.9 - GASTRO-ESOPHAGEAL REFLUX DISEASE WITHOUT ESOPHAGITIS (6) Hypertension Current Visit: Yes Status: Chronic Qualifiers: Hypertension type: primary hypertension Qualified Code(s): I10 - Essential (primary) hypertension Code(s): I10 - ESSENTIAL (PRIMARY) HYPERTENSION
[2022-12-08] MEDS ORDERED: MEDICATION INTERVENTION MC SCH (13:45)
[2022-12-08 13:59] LABS: Folate (Folic Acid) 14.8 ng/mL (2.76 - >20); TSH, 3RD Generation 1.07 mIU/L (0.47-4.68)
--- NOTE | 2022-12-08 15:05 | ECHO ---
Transthoracic echocardiographic examination and color Doppler was done on 12/08/2022. INDICATION: Chest pains. IMPRESSION: 1) NO REGIONAL WALL MOTION ABNORMALITY. ESTIMATED GLOBAL LEFT VENTRICULAR EJECTION FRACTION OF AROUND 60%. 2) TRACE MITRAL REGURGITATION. 3) TRACE TRICUSPID REGURGITATION. RIGHT VENTRICULAR SYSTOLIC PRESSURE OF 22 MM OF MERCURY. 4) MILD LEFT ATRIAL ENLARGEMENT. 5) LEFT VENTRICULAR HYPERTROPHY. The left ventricle is visualized and demonstrated adequate motion of all the segments. Estimated global left ventricular ejection fraction is 60%. There is mild left ventricular hypertrophy. The mitral valve is seen and this opens adequately. There is trace mitral regurgitation. Left atrium is mildly enlarged. The aortic valve is trileaflet. There is no significant gradient across the left ventricular outflow tract. The right side chambers are normal. There is trace tricuspid regurgitation. The right ventricular systolic pressure of 22 mm of Mercury.
[2022-12-08] MEDS: xanAX 0.25 MG PO SCH (15:13)
[2022-12-08] MEDS: Protonix 40MG Tablet PO SCH ×2 (15:14→21:22)
[2022-12-08] MEDS: Pepcid 20 MG PO SCH (15:14)
--- NOTE | 2022-12-08 15:14 | XRAY ---
Indication: CVA. Hypertension. Vertigo. Two-dimensional sonogram and color Doppler imaging of the carotid arteries of the neck performed. Comparison: None Examination of the right carotid circulation demonstrates tortuous common carotid artery. Widely patent common carotid, carotid bulb, internal carotid, and external carotid arteries. PSV of the CCA is 53 cm/s. PSV of the ICA is 66 cm/s. ICA/CCA ratio is 1.2. Normal antegrade vertebral artery flow. Examination of the left carotid circulation demonstrates minimal eccentric calcific plaquing at the level of the bulb. Remaining common carotid, internal carotid, and external carotid arteries are widely patent. PSV of the CCA is 43 cm/s. PSV of the ICA is 31 cm/s. ICA/CCA ratio is 0.7. Normal antegrade vertebral artery flow. Impression: Widely patent right carotid circulation. Minimal arteriosclerotic plaquing left carotid bulb. Velocity measurements and ratios are negative for hemodynamically significant flow limiting stenosis.
[2022-12-08 17:40] LABS: ANION GAP 15.5 MEQ/L (5-15); BLOOD UREA NITROGEN 10 mg/dL (9-20); CHLORIDE 94 mmol/L (98-107); Calcium 8.1 mg/dL (8.4-10.2); Carbon Dioxide 22 mmol/L (22-30); Creatinine 1 0.67 mg/dL (0.66-1.25); EST GLOMERULAR FILTRATION RATE > 60.0 ML/MIN; Glucose 116 mg/dL (74-106); Potassium 3.9 mmol/L (3.5-5.1); SODIUM 127 mmol/L (137-145)
[2022-12-08] MEDS ORDERED: NON-FORMULARY ITEM (Omeprazole [Omeprazole] 40 MG Capsule.Dr) PO SCH (22:00)
--- NOTE | 2022-12-09 08:55 | PCM.DS ---
Discharge Summary Date of Admission: 12/07/22 20:11 Admitting Physician: JIAN FLAHERTY Consults: Consults on Case 12/08/22 12:01 Consult Cardiology ROUTINE Primary Care Provider: CHAVEZ CARPENTER Allergies Allergies No Known Drug Allergies Allergy (Verified 04/30/13 11:05) Hospital Summary - Hospital Course Hospital Course: is a 72 year old male with h/o HTN, GERD, and psoriasis, who presented to ER with sudden onset of chest pain. He was recently started on Skyrizi for psoriasis, and has noted increased malaise and fatigue the past few days. His troponins were neg x 3. He did have an EKG showing atrial fibrillation (normal rate) when he first came to the hospital. He has been NSR since then. Chol is 148, LDL 60, HDL 56, triglyc 108. Pt states he's been tired for the past month or so. Sees Dr. Rachid Carpenter regularly. Pt's sodium has been low since Aug 2021. Was 127 this morning. - Vitals & Intake/Output Vital Signs: Vital Signs Temperature 97.5 F 12/09/22 07:10 Pulse Rate 65 12/09/22 07:10 Respiratory Rate 17 12/09/22 07:10 Blood Pressure 120/72 12/09/22 07:10 O2 Sat by Pulse Oximetry 93 L 12/09/22 07:10 Intake & Output: Intake & Output 12/06/22 12/07/22 12/08/22 12/09/22 11:59 11:59 11:59 11:59 Intake Total 840 1500 Output Total 1600 1350 Balance -760 150 Weight 78.5 kg 78.7 kg - Lab Result Diagrams: 12/08/22 05:04 12/08/22 17:06 Lab Results-Last 24 Hrs: Lab Results-Last 24 Hours 12/08/22 12/08/22 12/08/22 Range/Units 05:04 13:24 13:24 Sodium (137-145) mmol/L Potassium (3.5-5.1) mmol/L Chloride (98-107) mmol/L Carbon Dioxide (22-30) mmol/L Anion Gap (5-15) MEQ/L BUN (9-20) mg/dL Creatinine (0.66-1.25) mg/dL Estimated GFR ML/MIN Glucose (74-106) mg/dL Calcium (8.4-10.2) mg/dL Vitamin B12 297 (239-931) pg/mL Folic Acid 14.8 (2.76 - >20) ng/mL TSH 3rd Generation 1.070 (0.47-4.68) mIU/L Urine Sodium 48 (30-90) mmol/L Urine Chloride 42 (18-209) mmol/L 12/08/22 Range/Units 17:06 Sodium 127 L (137-145) mmol/L Potassium 3.9 (3.5-5.1) mmol/L Chloride 94 L (98-107) mmol/L Carbon Dioxide 22 (22-30) mmol/L Anion Gap 15.5 H (5-15) MEQ/L BUN 10 (9-20) mg/dL Creatinine 0.67 (0.66-1.25) mg/dL Estimated GFR > 60.0 ML/MIN Glucose 116 H (74-106) mg/dL Calcium 8.1 L (8.4-10.2) mg/dL Vitamin B12 (239-931) pg/mL Folic Acid (2.76 - >20) ng/mL TSH 3rd Generation (0.47-4.68) mIU/L Urine Sodium (30-90) mmol/L Urine Chloride (18-209) mmol/L - Radiology Exams Ordered Rad Exams-Entire Visit: Radiology Procedures Category Date Time Status CAROTID BILATERAL [US] Routine Exams 12/08/22 12:03 Completed CHEST 1 VIEW (PORTABLE) Stat Exams 12/07/22 14:06 Completed ECHO W/2D AND DOPPLER [US] Routine Exams 12/08/22 10:00 Draft - Procedures and Test Procedures and Tests throughout Hospitalization: Therapy Orders & Screens 12/07/22 17:21 EKG [id number],QAMX3,PRN Comment: 12/08/22 00:40 EKG ROUTINE Comment: 12/09/22 05:00 EKG ROUTINE Comment: 12/10/22 05:00 EKG ROUTINE Comment: Discharge Exam General Appearance: no apparent distress, alert Neurologic Exam: oriented x 3, cooperative Eye Exam: eyes nml inspection Ears, Nose, Throat Exam: moist mucous membranes Neck Exam: normal inspection Respiratory Exam: normal breath sounds, lungs clear, No crackles/rales, No rhonchi, No wheezing Cardiovascular Exam: regular rate/rhythm, normal heart sounds, No murmur Gastrointestinal/Abdomen Exam: soft, normal bowel sounds, No tenderness, No distention, No mass, No guarding, No rebound Back Exam: normal inspection, No rash Extremity Exam: normal inspection Skin Exam: normal color, warm, dry, No rash Final Diagnosis/Problem List - Final Discharge Diagnosis/Problem (1) Chest pain Current Visit: Yes Status: Resolved Code(s): R07.9 - CHEST PAIN, UNSPECIFIED (2) Atrial fibrillation Current Visit: Yes Status: Resolved Assessment & Plan: Will discuss with Dr. Rachid Carpenter, marble machine operator, about anticoagulation moving forward. Rate has been fine the entire visit. I have a call out to Dr. Carpenter. Code(s): I48.91 - UNSPECIFIED ATRIAL FIBRILLATION (3) Syncope Current Visit: Yes Status: Acute Assessment & Plan: Workup done- echo prelim result (EF 60%, LVH) and carotid doppler neg for rate- limiting plaque buildup. Code(s): R55 - SYNCOPE AND COLLAPSE (4) Hyponatremia Current Visit: Yes Status: Chronic Assessment & Plan: chronic - labs are pending (urine Na, etc) Code(s): E87.1 - HYPO-OSMOLALITY AND HYPONATREMIA (5) GERD (gastroesophageal reflux disease) Current Visit: Yes Status: Chronic Code(s): K21.9 - GASTRO-ESOPHAGEAL REFLUX DISEASE WITHOUT ESOPHAGITIS (6) Hypertension Current Visit: Yes Status: Chronic Code(s): I10 - ESSENTIAL (PRIMARY) HYPERTENSION - Discharge Disposition: Home, Self-Care Condition: Stable Prescriptions: New Apixaban [Eliquis] 5 mg PO BID 30 Days #60 tablet Nitroglycerin 0.4 mg Tablet [Nitrostat 0.4 MG Tablet] 0.4 mg SL Q5MIN PRN MR X 3 PRN 30 Days #25 tab PRN Reason: Chest Pain Continue Methotrexate Sodium [Methotrexate] 25 mg IJ WEEKLY Simvastatin 20Mg [Zocor 20Mg] 20 mg PO DAILY Omeprazole 80 mg PO BID Famotidine 40 mg PO DAILY Carvedilol [Coreg] 25 mg PO BID Benazepril HCl 40 mg PO DAILY Metoclopramide HCl 10 mg PO DAILY Aspirin EC 325 mg [Ecotrin 325 MG] 325 mg PO 3XW Amlodipine Besylate 5 mg [Norvasc 5 mg] 5 mg PO BID ALPRAZolam 0.25 MG [xanAX 0.25 MG] 0.25 mg PO DAILY Folic Acid 20 mg PO DAILY Follow up with: CHAVEZ CARPENTER [Primary Care Provider] -
[2022-12-09] MEDS: COREG 12.5 MG PO SCH (09:37)
[2022-12-09] MEDS: NORVASC 5 MG PO SCH (09:39)
[2022-12-09] MEDS: Protonix 40MG Tablet PO SCH (09:39)
[2022-12-09] MEDS: Pepcid 20 MG PO SCH (09:40)
[2022-12-09] MEDS: xanAX 0.25 MG PO SCH (09:41)
[2022-12-09] MEDS: Lotensin PO SCH (09:41)
[2022-12-09] MEDS: ENOXAPARIN SODIUM SQ SCH (09:46)
[2022-12-09] MEDS ORDERED: ZOCOR 20MG PO SCH (10:00)
[2022-12-09] MEDS ORDERED: FOLIC ACID 20 MG PO SCH (10:00)
[2022-12-09] MEDS ORDERED: NON-FORMULARY ITEM (Famotidine [Famotidine] 40 MG Tablet) PO SCH (10:00)
[2022-12-09 11:53] VITALS: BP 129/65; PULSE 64; O2SAT 94
[2022-12-10] MEDS ORDERED: Ecotrin 325 MG PO SCH (10:00)
== END 2022-12-09 12:05 | disposition home or self-care (01) ==
LOC: ED 13:49 → MED SURG 20:11
PROVIDERS: ADMIT Family Medicine; ATTEND Family Medicine
DX: R07.9 Chest pain, unspecified (principal); I48.91 Unspecified atrial fibrillation; I10 Essential (primary) hypertension; R55 Syncope and collapse; E87.1 Hypo-osmolality and hyponatremia; K21.9 Gastro-esophageal reflux disease without esophagitis; Z79.899 Other long term (current) drug therapy; Z20.828 Contact with and (suspected) exposure to other viral communicable diseases
CPT/HCPCS: 0241U; 36415; 71045; 80048; 80053; 80061; 82436; 82607; 82746; 83721; 83880; 84300; 84443; 84484; 85025; 85027; 85610; 85730; 93005; 93306; 93880; 99285; 99291; 93268; A9270-GY; G0378

== ENCOUNTER 2023-04-11 15:58 | Emergency (ER) | payer MEDICARE, OTHER ==
--- NOTE | 2023-04-11 16:25 | ERPHSYRPT ---
- History of Present Illness Time Seen by Provider: 04/11/23 16:24 Source: patient, family Exam Limitations: clinical condition Physician History: This is a 72-year-old white male patient who stated that he was not feeling well this morning but then by 11:00 in the morning he started feeling better and decided to go to work. 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 Suddenly, he fell hitting his head posteriorly and his back. He does not recall the events. Patient arrives to the emergency room diaphoretic. He complains of bilateral rib pain, left lower quadrant and left flank pain headache pain as well. When he arrived to the emergency department room we placed a c-collar on him. Patient is on Eliquis. Patient has a history of hyperlipidemia, gastroesophageal reflux disease, coronary artery disease, hypertension and anxiety issues. Patient moves all his extremities and has no complaints of extremity pain Occurred: just prior to arrival Reason for Fall: unknown Injuries/Pain Location: head, neck, chest (Bilateral ribs), abdomen Loss of Consciousness: brief (seconds) Severity of Pain-Max: moderate Severity of Pain-Current: moderate Modifying Factors: Improves With: movement Associated Symptoms (Fall): abdominal pain, back pain, confusion, chest pain (Mild bilateral rib pain), headache, neck pain (Mild), No extremity injury, No s hortness of breath Allergies/Adverse Reactions: No Known Drug Allergies Allergy (Verified 04/11/23 16:34) Home Medications: ALPRAZolam 0.25 MG [xanAX 0.25 MG] 0.25 mg PO DAILY 12/07/22 [History] Amlodipine Besylate 5 mg [Norvasc 5 mg] 5 mg PO BID 12/07/22 [History] Aspirin EC 325 mg [Ecotrin 325 MG] 325 mg PO 3XW 12/07/22 [History] Benazepril HCl 40 mg PO DAILY 12/07/22 [History] Carvedilol [Coreg] 25 mg PO BID 12/07/22 [History] Famotidine 40 mg PO DAILY 12/07/22 [History] Folic Acid 20 mg PO DAILY 12/07/22 [History] Methotrexate Sodium [Methotrexate] 25 mg IJ WEEKLY 12/07/22 [History] Metoclopramide HCl 10 mg PO DAILY 12/07/22 [History] Omeprazole 80 mg PO BID 12/07/22 [History] Simvastatin 20Mg [Zocor 20Mg] 20 mg PO DAILY 12/07/22 [History] Hx Tetanus, Diphtheria Vaccination/Date Given: Yes (01/2013) Hx Influenza Vaccination/Date Given: No Hx Pneumococcal Vaccination/Date Given: No Travel Risk - International Travel Have you traveled outside of the country in past 3 weeks: No - Coronavirus Screening Are you exhibiting any of the following symptoms?: No Close contact with a COVID-19 positive Pt in past 14-21 Days: No - Vaccine Status Have you recieved a Covid-19 vaccination: Yes 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 - Vaccination Dates Date of 2cond Vaccination (if applicable): 2020 - Review of Systems Constitutional: No Symptoms Eyes: No Symptoms Ears, Nose, & Throat: No Symptoms Respiratory: No Symptoms Cardiac: Other (Bilateral rib pain) Abdominal/Gastrointestinal: Abdominal Pain (Left lower quadrant left flank) Genitourinary Symptoms: Flank Pain (Left flank) Musculoskeletal: Back Pain, Neck Pain Skin: Other (Stellate skin laceration posterior scalp/occipital region) Neurological: Headache Psychological: No Symptoms Endocrine: No Symptoms Hematologic/Lymphatic: No Symptoms Immunological/Allergic: No Symptoms All Other Systems: Reviewed and Negative - Past Medical History Pertinent Past Medical History: Yes Neurological History: No Pertinent History ENT History: No Pertinent History Cardiac History: Hypertension Respiratory History: No Pertinent History Endocrine Medical History: No Pertinent History Musculoskeletal History: Fractures GI Medical History: GERD History: No Pertinent History Psycho-Social History: Anxiety Male Reproductive Disorders: No Pertinent History Other Medical History: GERD - Past Surgical History Past Surgical History: Yes Neuro Surgical History: No Pertinent History Cardiac: No Pertinent History Respiratory: No Pertinent History Gastrointestinal: No Pertinent History Genitourinary: No Pertinent History Musculoskeletal: Orthopedic Surgery Male Surgical History: No Pertinent History Other Surgical History: fracture repair. legs arms collar bone hands - Social History Smoking Status: Former smoker Exposure to second hand smoke: No Alcohol Use: None Drug Use: none Patient Lives Alone: No Significant Family History: hypertension - Nursing Vital Signs Nursing Vital Signs: Initial Vital Signs Temperature 98.6 F 04/11/23 16:35 Pulse Rate 77 04/11/23 16:35 Respiratory Rate 20 04/11/23 16:35 Blood Pressure 99/66 04/11/23 16:35 O2 Sat by Pulse Oximetry 96 04/11/23 16:35 Pain Scale Pain Intensity 5 - [place] Coma Score Best Eye Response ([place]): (4) open spontaneously Best Verbal Response ([place]): (5) oriented Best Motor Response ([place]): (6) obeys commands [place] Total: 15 - Physical Exam General Appearance: no apparent distress, alert, anxiety Head Injury: lacerations (Stellate 1 cm laceration posterior/occipital scalp), tenderness Eye Exam: PERRL/EOMI, eyes nml inspection ENT Exam: airway nml, nml ext.inspection Neck Exam: supple, trachea midline, full range of motion, normal alignment, muscle spasm, paraspinous muscle tender, other (Patient came in without a c- collar in place. We examined him and placed him in a c-collar) Respiratory/Chest Exam: normal breath sounds, No chest tenderness, No respiratory distress, No ecchymosis, No crepitus Cardiovascular Exam: normal heart sounds, regular rate/rhythm Gastrointestinal Exam: soft, normal bowel sounds, No tenderness Rectal Exam: not done Back Exam: normal inspection, normal range of motion, CVA tenderness, muscle spasm, No vertebral tenderness (Left side) Extremity Exam: normal inspection, normal range of motion Neurologic Exam: alert, oriented x 3, cooperative, opera singer II-XII nml as tested, normal mood/affect Skin Exam: laceration (Scalp laceration occipital region as above) SpO2 Interpretation: normal O2 Delivery: Room Air Procedures - Laceration/Wound Repair Occipital Time of Procedure: 16:45 Wound Location: head (Occipital region stellate) Wound Length (cm): 1 Wound's Depth, Shape: superficial, stellate, into subcut (Wound explored to the base in a bloodless field. 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 Care 04/11/23 16:47 Active Clean Catch Urine Specimen STAT Care 04/11/23 16:45 Active EKG-ER Only STAT Care 04/11/23 16:45 Active IV Insertion STAT Care 04/11/23 16:45 Active ABDOMEN AND PELVIS W/0 CONTRAS [CT] Stat Exams 04/11/23 16:46 Completed CERVICAL SPINE WO CONTRAST [CT] Stat Exams 04/11/23 16:47 Completed CHEST WITHOUT CONTRAST [CT] Stat Exams 04/11/23 17:06 Completed HEAD WITHOUT CONTRAST [CT] Stat Exams 04/11/23 16:47 Completed CBC W DIFF Stat Lab 04/11/23 16:50 Completed CMP Stat Lab 04/11/23 16:50 Completed ETHYL ALCOHOL Stat Lab 04/11/23 16:50 Completed POTASSIUM, URINE RANDOM Stat Lab 04/11/23 18:25 Completed Sodium, Urine Stat Lab 04/11/23 18:25 Completed TROPONIN Q4H Lab 04/11/23 16:50 Completed TROPONIN Q4H Lab 04/11/23 21:00 Ordered TROPONIN Q4H Lab 04/12/23 01:00 Ordered UA W/RFX UR CULTURE Stat Lab 04/11/23 16:48 Completed Urine Triage Profile Stat Lab 04/11/23 16:48 Completed Medication Summary Generic Name Dose Route Start Last Admin Trade Name Freq PRN Reason Stop Dose Admin Sodium Chloride 1,000 mls @ 100 mls/hr 04/11/23 16:45 04/11/23 17:03 Sodium Chloride 0.9% 1000 Ml IV 05/11/23 16:44 100 mls/hr .Q10H NAVDEEP Administration Discontinued Medications Generic Name Dose Route Start Last Admin Trade Name Freq PRN Reason Stop Dose Admin Hydromorphone HCl 1 mg 04/11/23 18:15 04/11/23 18:25 Hydromorphone 1 Mg/1ml Inj IV 04/11/23 18:16 1 mg STAT ONE Administration Hydromorphone HCl Confirm 04/11/23 18:24 Hydromorphone 1 Mg/1ml Inj Administered 04/11/23 18:25 Dose 1 mg .ROUTE .STK-MED ONE Ondansetron HCl 4 mg 04/11/23 18:15 04/11/23 18:25 Ondansetron Hcl 4 Mg/2 Ml Vial IV 04/11/23 18:16 4 mg STAT ONE Administration Ondansetron HCl Confirm 04/11/23 18:24 Ondansetron Hcl 4 Mg/2 Ml Vial Administered 04/11/23 18:25 Dose 4 mg .ROUTE .STK-MED ONE Lab/Rad Data: Laboratory Result Diagrams 04/11/23 16:50 04/11/23 16:50 Laboratory Results 04/11/23 04/11/23 04/11/23 Range/Units 18:25 16:50 16:50 WBC (4.0-10.5) x10^3/uL RBC (4.1-5.6) x10^6/uL Hgb (12.5-18.0) g/dL Hct (42-50) % MCV (78-100) fL MCH (26-32) pg MCHC (32-36) g/dL RDW (11.5-14.0) % Plt Count (150-450) x10^3/uL MPV (7.5-11.0) fL Gran % (36.0-66.0) % Immature Gran % (Auto) (0.00-0.4) % Nucleat RBC Rel Count (0.00-0.1) % Eos # (Auto) (0-0.5) x10^3/uL Immature Gran # (Auto) (0.00-0.03) x10^3u/L Absolute Lymphs (auto) (1.0-4.6) x10^3/uL Absolute Monos (auto) (0.0-1.3) x10^3/uL Absolute Nucleated RBC (0.00-0.01) x10^3u/L Lymphocytes % (24.0-44.0) % Monocytes % (0.0-12.0) % Eosinophils % (0.00-5.0) % Basophils % (0.0-0.4) % Absolute Granulocytes (1.4-6.9) x10^3/uL Basophils # (0-0.4) x10^3/uL Sodium 121 L (137-145) mmol/L Potassium 4.7 (3.5-5.1) mmol/L Chloride 89 L (98-107) mmol/L Carbon Dioxide 20 L (22-30) mmol/L Anion Gap 16.2 H (5-15) MEQ/L BUN 8 L (9-20) mg/dL Creatinine 1.04 (0.66-1.25) mg/dL Estimated GFR > 60.0 ML/MIN Glucose 105 (74-106) mg/dL Calcium 8.7 (8.4-10.2) mg/dL Total Bilirubin 0.80 (0.2-1.3) mg/dL AST 37 (17-59) U/L ALT 28 (0-50) U/L Alkaline Phosphatase 71 (38-126) U/L Troponin I < 0.012 (0.000-0.034) ng/mL Serum Total Protein 6.9 (6.3-8.2) g/dL Albumin 4.1 (3.5-5.0) g/dL Urine Color (Yellow) Urine Appearance (Clear) Urine pH (4.6-8.0) Ur Specific [place] (1.005-1.030) Urine Protein (Negative) Urine Glucose (UA) (Negative) mg/dL Urine Ketones (Negative) Urine Blood (Negative) Urine Nitrite (Negative) Urine Bilirubin (Negative) Urine Urobilinogen (0.2) mg/dL Ur Leukocyte Esterase (Negative) U Hyaline Cast (Auto) (0-2) /LPF Urine Microscopic RBC (0-5) /HPF Urine Microscopic WBC (0-5) /HPF Ur Epithelial Cells (None Seen) /HPF Urine Bacteria (None Seen) /HPF Urine Culture Reflexed (NO) Urine Sodium 46 (30-90) mmol/L Urine Potassium 92.7 H (0.1-0.7) mmol/L Urine Opiates Level (NEGATIVE) Ur Methadone (NEGATIVE) Urine Barbiturates (NEGATIVE) Ur Phencyclidine (PCP) (NEGATIVE) Urine Amphetamine (NEGATIVE) U Benzodiazepine Level (NEGATIVE) Urine Cocaine (NEGATIVE) Urine Marijuana (THC) (NEGATIVE) Ethyl Alcohol < 10 (0-10) mg/dL Slides for Path Review 04/11/23 04/11/23 04/11/23 Range/Units 16:50 16:48 16:48 WBC 11.0 H (4.0-10.5) x10^3/uL RBC 4.19 (4.1-5.6) x10^6/uL Hgb 13.0 (12.5-18.0) g/dL Hct 36.8 L (42-50) % MCV 87.8 (78-100) fL MCH 31.0 (26-32) pg MCHC 35.3 (32-36) g/dL RDW 13.1 (11.5-14.0) % Plt Count 174 (150-450) x10^3/uL MPV 11.4 H (7.5-11.0) fL Gran % 88.7 H (36.0-66.0) % Immature Gran % (Auto) 0.5 H (0.00-0.4) % Nucleat RBC Rel Count 0.0 (0.00-0.1) % Eos # (Auto) 0.03 (0-0.5) x10^3/uL Immature Gran # (Auto) 0.06 H (0.00-0.03) x10^3u/L Absolute Lymphs (auto) 0.30 L (1.0-4.6) x10^3/uL Absolute Monos (auto) 0.83 (0.0-1.3) x10^3/uL Absolute Nucleated RBC 0.00 (0.00-0.01) x10^3u/L Lymphocytes % 2.7 L (24.0-44.0) % Monocytes % 7.6 (0.0-12.0) % Eosinophils % 0.3 (0.00-5.0) % Basophils % 0.2 (0.0-0.4) % Absolute Granulocytes 9.73 H (1.4-6.9) x10^3/uL Basophils # 0.02 (0-0.4) x10^3/uL Sodium (137-145) mmol/L Potassium (3.5-5.1) mmol/L Chloride (98-107) mmol/L Carbon Dioxide (22-30) mmol/L Anion Gap (5-15) MEQ/L BUN (9-20) mg/dL Creatinine (0.66-1.25) mg/dL Estimated GFR ML/MIN Glucose (74-106) mg/dL Calcium (8.4-10.2) mg/dL Total Bilirubin (0.2-1.3) mg/dL AST (17-59) U/L ALT (0-50) U/L Alkaline Phosphatase (38-126) U/L Troponin I (0.000-0.034) ng/mL Serum Total Protein (6.3-8.2) g/dL Albumin (3.5-5.0) g/dL Urine Color Dark Yellow (Yellow) Urine Appearance Clear (Clear) Urine pH 8.0 (4.6-8.0) Ur Specific [place] 1.020 (1.005-1.030) Urine Protein 30 (Negative) Urine Glucose (UA) Negative (Negative) mg/dL Urine Ketones Negative (Negative) Urine Blood Negative (Negative) Urine Nitrite Negative (Negative) Urine Bilirubin Negative (Negative) Urine Urobilinogen 1.0 A (0.2) mg/dL Ur Leukocyte Esterase Trace A (Negative) U [place]aline [place] (Auto) NONE SEEN (0-2) /LPF Urine Microscopic RBC 0-2 (0-5) /HPF Urine Microscopic WBC 3-5 (0-5) /HPF Ur Epithelial Cells None Seen (None Seen) /HPF Urine Bacteria None Seen (None Seen) /HPF Urine Culture Reflexed NO (NO) Urine Sodium (30-90) mmol/L Urine Potassium (0.1-0.7) mmol/L Urine Opiates Level NEGATIVE (NEGATIVE) Ur Methadone NEGATIVE (NEGATIVE) Urine Barbiturates NEGATIVE (NEGATIVE) Ur Phencyclidine (PCP) NEGATIVE (NEGATIVE) Urine Amphetamine NEGATIVE (NEGATIVE) U Benzodiazepine Level NEGATIVE (NEGATIVE) Urine Cocaine NEGATIVE (NEGATIVE) Urine Marijuana (THC) NEGATIVE (NEGATIVE) Ethyl Alcohol (0-10) mg/dL Slides for Path Review YES - Progress Progress: improved, pain not gone completely, re-examined Progress Note: 04/11/23 18:21 The following radiographic studies were interpreted by the radiologist and I rev iewed the impressions: 1. CT scan of the cervical spine without contrast shows no acute fracture or subluxation. 2. CT scan of the head without contrast is negative for any acute intracranial abnormality. 3. CT scan of the chest without contrast shows nondisplaced right lateral rib fractures 4, 6 and 7. There is no evidence of hemothorax or pneumothorax. There are no acute cardiopulmonary abnormalities. 4. CT scan of the abdomen pelvis without contrast shows moderate aortoiliac calcifications without abdominal aortic aneurysm. There is a remote T12-L2 compression fracture and 25 to 50% height loss. The remainder of the CT scan of the abdomen pelvis without contrast is negative. 04/11/23 20:56 This patient's medical issue is 1 of high complexity. Level complexity the work-up performed is based on review of the patient's past medical history, review of the patient's medication list, review of the patient's drug allergy list, history of present illness and physical findings on examination. The patient had extensive work-up including CT of the head, CT of the cervical spine , CT of the chest and CT of the abdomen and pelvis all without contrast. The above-stated findings are noted. He also underwent a placement of an intravenous line, twelve-lead EKG, CBC, CMP, repair of a scalp laceration with leticia, troponin level and urinalysis. I reviewed the laboratory results. The patient had a sodium of 121. This could account for him being dizzy and having a syncopal episode. Possibly even secondary to seizure. I did speak with Dr. Vazquez our telehospitalist. And she wanted the patient to be evaluated and managed at a facility where there is a auto transmission specialist. The patient has had chronic and decreasing sodium levels. I agree with her. We then contacted [facility], Dr. Hinds who is a trauma surgeon. He accepts the patient as a trauma patient and will consult nephrology for further evaluation and management. Counseled pt/family regarding: lab results, diagnosis, need for follow-up, rad results Medical Desision Making - Independent Historian Additional History obtained from: Spouse, Family - Diagnostic Testing Diagnostic test were ordered, analyzed, and reviewed by me: Yes Radiological Interpretation: Reviewed by me, Teleradiologist Report - Risk of complications The pt has a high risk of morbidity or mortality based on: Decision regarding hospitilization or escalation of hosp level of care - Departure Clinical Impression: Hyponatremia, Trauma, Head injury, Occipital scalp laceration, Ribs, multiple fractures Condition: Stable Critical Care Time: No Referrals: CHAVEZ CARPENTER [Primary Care Provider] - Follow up/PCP as directed
[2023-04-11 16:42] VITALS: TEMP 98.6
[2023-04-11] MEDS ORDERED: Sodium Chloride 0.9% 1000 ML 1,000 ML IV SCH (16:45)
[2023-04-11 16:59] LABS: Absolute Neutrophil Ct (ANC) 9.73 x10^3/uL (1.4-6.9); BASOPHIL % 0.2 % (0.0-0.4); Basophil (Absolute #) 0.02 x10^3/uL (0-0.4); Eosinophil % 0.3 % (0.00-5.0); Eosinophil (Absolute #) 0.03 x10^3/uL (0-0.5); Hematocrit 36.8 % (42-50); IMMATURE GRAN # 0.06 x10^3u/L (0.00-0.03); IMMATURE GRAN % 0.5 % (0.00-0.4); Lymphocytes % 2.7 % (24.0-44.0); Mean Cell Volume 87.8 fL (78-100); Mean Corpuscular Hgb Concent. 35.3 g/dL (32-36); Mean Platelet Volume 11.4 fL (7.5-11.0); Monocyte (Absolute #) 0.83 x10^3/uL (0.0-1.3); Monocytes % 7.6 % (0.0-12.0); Neutrophil % 88.7 % (36.0-66.0); Platelet Count 174 x10^3/uL (150-450); Red Blood Count 4.19 x10^6/uL (4.1-5.6); Red Cell Distribution Width 13.1 % (11.5-14.0)
[2023-04-11] MEDS ORDERED: Sodium Chloride 0.9% 1000 ML 1,000 ML ONE (17:01)
[2023-04-11 17:09] LABS: Appearance Clear (Clear); Bacteria None Seen /HPF (None Seen); Bilirubin Negative (Negative); Blood Negative (Negative); Epithelial Cells None Seen /HPF (None Seen); Glucose, Urine Negative (Negative); Hyaline Casts NONE SEEN /LPF (0-2); Ketones Negative (Negative); Leukocyte Esterase Trace (Negative); Nitrite Negative (Negative); Protein,Urine Dip 30 (Negative); RBC 0-2 /HPF (0-5)
[2023-04-11 17:12] LABS: ADD URINE CULTURE? NO (NO)
[2023-04-11 17:14] LABS: ALBUMIN 4.1 g/dL (3.5-5.0); ALKALINE PHOSPHATASE 71 U/L (38-126); ANION GAP 16.2 MEQ/L (5-15); BLOOD UREA NITROGEN 8 mg/dL (9-20); CHLORIDE 89 mmol/L (98-107); Calcium 8.7 mg/dL (8.4-10.2); Carbon Dioxide 20 mmol/L (22-30); Creatinine 1 1.04 mg/dL (0.66-1.25); EST GLOMERULAR FILTRATION RATE > 60.0 ML/MIN; ETHYL ALCOHOL < 10 mg/dL (0-10); Glucose 105 mg/dL (74-106); Potassium 4.7 mmol/L (3.5-5.1); SGOT/AST 37 U/L (17-59); SGPT/ALT 28 U/L (0-50); SODIUM 121 mmol/L (137-145); Total Protein 6.9 g/dL (6.3-8.2)
[2023-04-11 17:24] LABS: Amphetamine,Urine NEGATIVE (NEGATIVE); Barbiturate,Urine NEGATIVE (NEGATIVE); Benzodiazepine,Urine NEGATIVE (NEGATIVE); Cocaine,Urine NEGATIVE (NEGATIVE); Methadone,Urine NEGATIVE (NEGATIVE); Opiate,Urine NEGATIVE (NEGATIVE); PCP,Urine NEGATIVE (NEGATIVE); THC,Urine NEGATIVE (NEGATIVE)
--- NOTE | 2023-04-11 17:55 | XRAY ---
Indication: Status post fall. Syncope. Multiple contiguous axial images obtained through the head without contrast. Comparison: None Left occipital scalp leticia. Age-appropriate global atrophy. No acute intracranial hemorrhage, abnormal extra-axial fluid collection, or mass effect. Fourth ventricle is midline without hydrocephalus. Bob-white matter differentiation preserved. Bony calvarium intact. Mild/moderate mucosal thickening both ethmoid and sphenoid sinuses with fluid leveling. Mastoid air cells are clear. Impression: Paranasal sinus disease. Remaining CT head without contrast exam is negative.
--- NOTE | 2023-04-11 17:57 | XRAY ---
Indication: Status post fall. Syncope. Multiple contiguous axial images obtained through the cervical spine. Sagittal and coronal reformatted images obtained. Comparison: None Axial images negative for acute fracture, suspicious bony lesions, or spinal canal stenosis. Minimal/mild multilevel endplate spurring and mild multilevel bilateral degenerative facet arthropathy. Sagittal and coronal reformatted images demonstrates lordotic straightening, positional versus paraspinal spasm. C5-C7 degenerative disc space narrowing. No acute compression fracture, subluxation, or jumped facet. Normal appearing craniocervical junction. Visualized noncontrasted soft tissues demonstrates mild bilateral carotid calcifications. Impression: 1. Negative acute fracture/subluxation. Lordotic straightening, positional versus paraspinal spasm. 2. Mild multilevel degenerative changes and mild bilateral carotid calcifications.
--- NOTE | 2023-04-11 18:05 | XRAY ---
Indication: Rib pain following fall. Multiple contiguous axial images obtained through the chest without contrast. Comparison: None Lungs demonstrates moderate bilateral dependent atelectasis. Peripheral left upper lobe demonstrates small focus of subsegmental atelectasis/scarring. Inferior right upper lobe calcified granuloma. No suspicious pulmonary mass, infiltrate, effusion, or pneumothorax. Heart not enlarged with scattered coronary calcifications. Aorta mildly arteriosclerotic without aneurysm. Small mediastinal calcified nodes. Moderate-sized hiatal hernia with partial intrathoracic stomach. Bony thorax demonstrates nondisplaced right 4/6/7 lateral rib fractures. Elsewhere osteopenia, mild/moderate multilevel degenerative changes, old right clavicle fracture, and old multiple bilateral rib fractures. T4/T9/T12 remote appearing compression fractures with 25-50% height loss. CT abdomen/pelvis reported separately. Impression: 1. Nondisplaced right rib fractures without hemothorax/pneumothorax as detailed. 2. Scattered subsegmental atelectasis. No acute cardiopulmonary abnormalities. 3. Chronic findings including hiatal hernia with intrathoracic stomach, arteriosclerotic disease, and chronic bony findings.
--- NOTE | 2023-04-11 18:12 | XRAY ---
Indication: Left flank/left lower quadrant pain. Status post fall. Multiple contiguous axial images obtained through the abdomen and pelvis without contrast. Comparison: None CT chest reported separately. Noncontrasted stomach and bowel loops appear nonobstructed with normal air-filled appendix. Scattered descending and sigmoid diverticulosis without diverticulitis. No free fluid/air. Remaining liver, gallbladder, pancreas, spleen, adrenal glands, kidneys, ureters, and bladder are unremarkable for noncontrast exam. Moderate scattered aortoiliac calcifications without AAA. Osseous structures demonstrates osteopenia and mild/moderate degenerative changes throughout the visualized spine. Remote appearing T12-L2 compression fractures with 25-50% height loss. Impression: 1. Chronic findings including colonic diverticulosis, arteriosclerotic disease, and chronic bony findings. 2. Remaining CT abdomen/pelvis without contrast exam is negative.
[2023-04-11] MEDS ORDERED: Hydromorphone 1 mg/ml Injection IV ONE (18:15)
[2023-04-11] MEDS ORDERED: Zofran 4 MG/2 ML VIAL IV ONE (18:15)
[2023-04-11] MEDS ORDERED: Zofran 4 MG/2 ML VIAL ONE (18:24)
[2023-04-11] MEDS ORDERED: Hydromorphone 1 mg/ml Injection ONE (18:24)
[2023-04-11 18:55] LABS: POTASSIUM, URINE RANDOM 92.7 mmol/L (0.1-0.7)
[2023-04-11 19:06] LABS: Slide Review 1 YES
[2023-04-11 21:12] VITALS: PULSE 74
[2023-04-11 22:03] VITALS: BP 103/78; RESP 15; O2SAT 98
== END 2023-04-11 22:10 | disposition short-term general hospital (02) ==
LOC: ED 15:58
DX: E87.1 Hypo-osmolality and hyponatremia (principal); S09.90XA Unspecified injury of head, initial encounter; S01.01XA Laceration without foreign body of scalp, initial encounter; S22.41XA Multiple fractures of ribs, right side, initial encounter for closed fracture; W18.39XA Other fall on same level, initial encounter; R55 Syncope and collapse; R10.32 Left lower quadrant pain; R51.9 Headache, unspecified; E78.5 Hyperlipidemia, unspecified; I10 Essential (primary) hypertension; Z79.01 Long term (current) use of anticoagulants; Z79.899 Other long term (current) drug therapy
CPT/HCPCS: 12001; 36000; 36415; 70450; 71250; 72125; 74176; 80053; 80307; 81001; 82077; 83935; 84133; 84300; 84484; 85025; 93005; 93041; 96360; 96361; 96374; 96375; 99285; J1170; J2405